=== PATIENT | male | born 1960 | race Caucasian/White ===

== ENCOUNTER 2024-01-21 14:22 | Emergency (ER) | payer OTHER ==
[~2024-01-21] VITALS: Ht 167.6 cm; Wt 113.4 kg
[2024-01-21 16:10] VITALS: TEMP 98.4
[2024-01-21] MEDS ORDERED: ONDANSETRON 4 MG TAB.RAPDIS ONE (20:20)
[2024-01-21] MEDS: ONDANSETRON 4 MG TAB.RAPDIS SL ONE (20:27)
[2024-01-21] MEDS ORDERED: PHENOBARBITAL SODIUM 130 MG/ML VIAL ONE (21:12)
[2024-01-21] MEDS: PHENOBARBITAL SODIUM 130 MG/ML VIAL IV ONE ×2 (21:23→21:26)
[2024-01-21] MEDS ORDERED: METOPROLOL TARTRATE INJ 5 MG/5 ML AMPUL ONE ×2 (22:00→22:12)
[2024-01-21] MEDS: METOPROLOL TARTRATE INJ 5 MG/5 ML AMPUL IV ONE ×2 (22:02→22:23)
[2024-01-21] MEDS ORDERED: CHLO25CA22 PO (22:26)
[2024-01-22 00:48] VITALS: BP 119/84; O2SAT 95
== END 2024-01-22 00:49 | disposition home or self-care (01) ==
LOC: ER 14:27
DX: F10.239 Alcohol dependence with withdrawal, unspecified (principal); I48.0 Paroxysmal atrial fibrillation; T51.0X1A Toxic effect of ethanol, accidental (unintentional), initial encounter; Y90.9 Presence of alcohol in blood, level not specified
CPT/HCPCS: 99285; 96374; 96375; J3490 ×2; J2560; Q0162

== ENCOUNTER 2025-05-28 06:21 | Inpatient (IN) | payer MEDICARE, MEDICAID ==
[~2025-05-28] VITALS: Ht 172.7 cm; Wt 116.3 kg
[~2025-05-28 06:21] MED LIST: CHLO25CA22 PO
[2025-05-28] MEDS ORDERED: LIDOCAINE 2%-EPI 1:100,000 30 ML VIAL ONE (07:03)
[2025-05-28] MEDS ORDERED: dexaMETHasone SOD PHOSPHATE 2 ML ONE (07:03)
[2025-05-28] MEDS ORDERED: VANCOMYCIN 1 GM VIAL ONE (07:03)
[2025-05-28] MEDS ORDERED: ANESTHESIA TRAY IN PYXIS 1 EA TRAY MC ONE (07:03)
[2025-05-28] MEDS ORDERED: ROCURONIUM BROMIDE 50 MG/5 ML ONE (07:18)
[2025-05-28] MEDS ORDERED: FENTANYL PF 250MCG/5ML AMPUL ONE (07:18)
[2025-05-28] MEDS ORDERED: LABETALOL HCL IV 100MG VIAL ONE (08:00)
[2025-05-28] MEDS ORDERED: FENTANYL PF 100MCG/2ML AMPUL ONE (10:25)
[2025-05-28] MEDS ORDERED: ACETAMINOPHEN 325 MG TABLET PO PRN (11:30)
[2025-05-28] MEDS ORDERED: ONDANSETRON HCL/PF 4 MG/2 ML VIAL IVP PRN ×2 (11:30→15:00)
[2025-05-28 12:00] VITALS: BP 129/91; TEMP 97.6; O2SAT 97
[2025-05-28] MEDS ORDERED: TAMS-12 PO (12:11)
[2025-05-28] MEDS ORDERED: APIX5TAB PO (12:11)
[2025-05-28] MEDS ORDERED: LEVO88TA5 PO (12:11)
[2025-05-28] MEDS ORDERED: METO-357 PO (12:11)
[2025-05-28] MEDS ORDERED: DILT-3 PO (12:11)
[2025-05-28] MEDS ORDERED: CHOL100062 PO (12:11)
[2025-05-28] MEDS: HYDROMORPHONE 1 MG/1 ML DISP.SYRIN IV PRN (13:08)
[2025-05-28] MEDS ORDERED: Z GUARD REMEDY 4 OZ OINT TP PRN (15:00)
[2025-05-28] MEDS ORDERED: ZOLPIDEM TARTRATE 5 MG TABLET PO PRN (15:00)
[2025-05-28] MEDS ORDERED: MAG HYDROX/AL HYDROX/SIMETH 30 ML UDC PO PRN (15:00)
[2025-05-28] MEDS ORDERED: MAGNESIUM HYDROXIDE 30 ML UDC PO PRN (15:00)
[2025-05-28 16:00] VITALS: BP 127/88; TEMP 97.6; O2SAT 99
[2025-05-28] MEDS: METOPROLOL SUCCINATE 50 MG TAB.SR.24H PO SCH (16:41)
[2025-05-28] MEDS: IV NS 0.9% 1,000 ML IV PRN (17:27)
[2025-05-28] MEDS: ACETAMINOPHEN 325 MG TABLET PO PRN (19:44)
[2025-05-28 20:00] VITALS: BP 149/98; TEMP 97.5; O2SAT 97
[2025-05-28] MEDS: VANCOMYCIN 1 GM in IV D5W 250ml IV SCH (20:26)
[2025-05-29 07:49] LABS: PLATELET COUNT (AUTO) 218 K/uL (150-450); RED BLOOD CELL COUNT(AUTO) 5.19 MIL/uL (4.5-6.0); RED CELL DISTRIBUTION WIDTH 16.3 % (11.5-15.0); WHITE BLOOD COUNT (AUTO) 10.6 K/uL (4.3-11.0)
[2025-05-29 07:58] LABS: CALCIUM, SERUM 8.6 mg/dL (8.5-10.1); CREATININE 1.0 mg/dL (0.6-1.3); PHOSPHORUS 3.2 mg/dL (2.5-4.9); SODIUM SERUM 141.0 mmol/L (136-145); UREA NITROGEN, BLOOD 17.0 mg/dL (7-18)
[2025-05-29 08:00] VITALS: BP 153/85; TEMP 97.6; O2SAT 95
[2025-05-29 08:43] VITALS: BP 114/61
[2025-05-29] MEDS: PANTOPRAZOLE 40 MG TABLET.DR PO SCH (08:43)
[2025-05-29] MEDS: TAMSULOSIN 0.4 MG CAP.SR.24H PO SCH (08:43)
[2025-05-29] MEDS: LEVOTHYROXINE SODIUM 88 MCG TABLET PO SCH (08:43)
[2025-05-29] MEDS: DILTIAZEM HCL CD 240 MG PO SCH (08:43)
== END 2025-05-29 12:20 | disposition home or self-care (01) | DRG 142 ==
LOC: DS 06:21 → MED 11:21
PROVIDERS: ADMIT Nurse Practitioner Acute Care; ATTEND Nurse Practitioner Acute Care
PROC: 0NST04Z Reposition Right Mandible with Internal Fixation Device, Open Approach (ICD-10-PCS; 2025-05-28)
PROC: 0NUV07Z Supplement Left Mandible with Autologous Tissue Substitute, Open Approach (ICD-10-PCS; 2025-05-28)
PROC: 0NUR07Z Supplement Maxilla with Autologous Tissue Substitute, Open Approach (ICD-10-PCS; 2025-05-28)
PROC: 0NUT07Z Supplement Right Mandible with Autologous Tissue Substitute, Open Approach (ICD-10-PCS; 2025-05-28)
PROC: 0N5V0ZZ Destruction of Left Mandible, Open Approach (ICD-10-PCS; 2025-05-28)
PROC: 0NSR04Z Reposition Maxilla with Internal Fixation Device, Open Approach (ICD-10-PCS; 2025-05-28)
PROC: 0N5T0ZZ Destruction of Right Mandible, Open Approach (ICD-10-PCS; 2025-05-28)
PROC: 0N5R0ZZ Destruction of Maxilla, Open Approach (ICD-10-PCS; 2025-05-28)
PROC: 09UR07Z Supplement Left Maxillary Sinus with Autologous Tissue Substitute, Open Approach (ICD-10-PCS; 2025-05-28)
PROC: 09UQ07Z Supplement Right Maxillary Sinus with Autologous Tissue Substitute, Open Approach (ICD-10-PCS; 2025-05-28)
PROC: 0NSV04Z Reposition Left Mandible with Internal Fixation Device, Open Approach (ICD-10-PCS; principal; 2025-05-28 07:30)
DX: S02.40DA Maxillary fracture, left side, initial encounter for closed fracture (principal); S02.609A Fracture of mandible, unspecified, initial encounter for closed fracture; M27.2 Inflammatory conditions of jaws; I10 Essential (primary) hypertension; E03.9 Hypothyroidism, unspecified; I48.91 Unspecified atrial fibrillation; N40.0 Benign prostatic hyperplasia without lower urinary tract symptoms; Z79.01 Long term (current) use of anticoagulants; Z79.899 Other long term (current) drug therapy; E11.9 Type 2 diabetes mellitus without complications; Z79.890 Hormone replacement therapy; S02.40CA Maxillary fracture, right side, initial encounter for closed fracture; X58.XXXA Exposure to other specified factors, initial encounter; Y92.9 Unspecified place or not applicable; J32.9 Chronic sinusitis, unspecified
CPT/HCPCS: 36415; 80048-TC; 83735-TC; 84100-TC; 85025-TC; A4223; A4338; C1713; G0378; J0330; J0461; J0690; J1100; J1171; J2704; J3010; J3373; J3490; J7030; J7060